=== PATIENT | female | born 1990 | race Caucasian/White ===

== ENCOUNTER 2021-04-03 17:09 | Outpatient (REF) | payer BC, SELFPAY | END 2021-04-03 17:10 | disposition home or self-care (01) | LOC: HO.LNP 17:09 | PROVIDERS: Visit Provider Physician Assistant | DX: Z20.822 Contact with and (suspected) exposure to COVID-19 (principal); J40 Bronchitis, not specified as acute or chronic | CPT/HCPCS: U0003; U0005 ==

== ENCOUNTER 2021-06-03 13:54 | Outpatient (REF) | payer BC, SELFPAY | END 2021-06-03 13:55 | disposition home or self-care (01) | LOC: HO.HMGCLDS 13:54 | PROVIDERS: Visit Provider Internal Medicine | DX: Z20.822 Contact with and (suspected) exposure to COVID-19 (principal) | CPT/HCPCS: C9803; U0003; U0005 ==

== ENCOUNTER 2021-12-25 14:12 | Outpatient (REF) | payer BC, SELFPAY ==
[2021-12-25 15:21] LABS: Hematocrit 32.2 % (37.0-47.0); Hemoglobin 10.6 g/dl (12.0-16.0); Mean Corpuscular HGB Conc 32.9 g/dl (31.0-35.0); Mean Corpuscular Hemoglobin 28.6 pg (27.0-33.0); Mean Platelet Volume 10.6 fL (9.4-12.3); Platelet Count 328 X10*3/uL (160-400); Red Cell Distribution Width 13.3 % (11.0-16.0); White Blood Count 5.4 X10*3/uL (4.8-10.8)
[2021-12-25 15:37] LABS: Anion Gap 11 (12-20); Blood Urea Nitrogen 14 mg/dL (9-16); Carbon Dioxide 24 mmol/L (22-29); Chloride 108 mmol/L (96-108); Estimated Glomerular Filt Rate > 60; Glucose Random 96 mg/dL (60-115); Potassium 4.2 mmol/L (3.3-5.1); Sodium 139 mmol/L (135-145)
[2021-12-25 15:58] LABS: Thyroid Stimulating Hormone 1.25 uIU/mL (0.32-4.0)
== END 2021-12-25 14:13 | disposition home or self-care (01) ==
LOC: HO.HMGCLDS 14:12
PROVIDERS: PCP Pediatrics; Visit Provider Internal Medicine
DX: N93.8 Other specified abnormal uterine and vaginal bleeding (principal)
CPT/HCPCS: 36415; 80048; 84443; 85027

== ENCOUNTER 2023-04-05 12:43 | Emergency (ER) | payer BC, SELFPAY ==
--- NOTE | ~2023-04-05 | XR_ITS ---
EXAMINATION: XR CHEST CLINICAL INFORMATION: Dyspnea on exertion and chest pain COMPARISON: 04/19/2019 TECHNIQUE: 2 views of the chest were obtained. FINDINGS: No significant abnormality is noted involving the heart, lungs, mediastinum, bony thorax or soft tissues. XR/XR chest 2V IMPRESSION: Unremarkable examination.
--- NOTE | 2023-04-05 12:47 | ECG_ITS ---
Test Reason : CP Blood Pressure : / mmHG Vent. Rate : 068 BPM Atrial Rate : 068 BPM P-R Int : 120 ms QRS Dur : 078 ms QT Int : 386 ms P-R-T Axes : 074 061 031 degrees QTc Int : 410 ms Normal sinus rhythm Normal ECG When compared with ECG of 19-APR-2019 13:20, No significant change was found Referred By: Generic ED Physician Electronically Signed By:MORENO JAIN MD
[2023-04-05 13:40] VITALS: BP 132/75; PULSE 80; RESP 16; TEMP 36.7; O2SAT 100; BMI 27.7
--- NOTE | 2023-04-05 13:41 | ED_ITS ---
HPI - Chest Pain General Chief Complaint: Chest Pain Stated Complaint: chest pain Time Seen by Provider: 04/05/23 17:31 Source: patient Mode of arrival: ambulatory History of Present Illness HPI narrative: 33-year-old female who presents with an occurrence of chest pressure that she describes as being in the mid chest and occurred last night while watching TV. It was associated with shortness of breath and then resolved. Patient states that it again occurred today and she became very concerned and decided to have it further evaluated here in the emergency room. She denies any significant past medical history is currently on hydroxyzine for anxiety and is currently on her menstrual cycle. Related Data Home Medications Medication Instructions Recorded Confirmed albuterol sulfate 90 mcg/actuation 0 mcg inhalation 04/03/21 aerosol inhaler amitriptyline 10 mg tablet 0 mg PO 04/03/21 benzonatate 100 mg capsule 100 mg PO TID 04/03/21 epinephrine 0.3 mg/0.3 mL 0.3 mg IM ONCE PRN 04/03/21 injection, auto-injector ferrous sulfate 325 mg (65 mg 325 mg PO TID 04/03/21 iron) tablet fluticasone propionate 50 1 spray intranasal DAILY 04/03/21 mcg/actuation nasal spray,suspension cholecalciferol (vitamin D3) 50 50 mcg PO DAILY 12/24/21 mcg (2,000 unit) capsule ferrous gluconate 324 mg (37.5 mg 324 mg PO BID 12/24/21 iron) tablet folic acid 1 mg tablet 1 mg PO DAILY 12/24/21 magnesium oxide 500 mg PO BID PRN constipation 12/24/21 mecobalamin (vitamin B12) 5,000 mcg PO 12/24/21 mcg disintegrating tablet pseudoephedrine HCl 120 mg 120 mg PO Q12H 12/24/21 tablet,extended release (Sinus 12 Hour) turmeric root extract 500 mg 500 mg PO DAILY 12/24/21 capsule Previous Rx's Medication Instructions Recorded albuterol sulfate 90 mcg/actuation 1 inh inhalation Q4-6H PRN 04/03/21 aerosol inhaler (ProAir HFA) shortness of breath or wheezing #6.7 grams azithromycin 250 mg tablet 250 mg PO DAILY 5 days #6 tabs 04/03/21 (Zithromax Z-Douglas) Allergies Allergy/AdvReac Type Severity Reaction Status Date / Time morphine Allergy Mild itchy Verified 12/24/21 14:55 chest and throat diphenhydramine Allergy Unknown PALP Verified 04/03/21 14:19 [From BENADRYL] ibuprofen [From MOTRIN] Allergy Unknown PALP Verified 04/03/21 14:19 Review of Systems 2 Review of Systems: Pertinent positives and negatives as stated in [facility] Past Medical History Source: nursing notes reviewed Social History Social History Alcohol intake: never Patient Tobacco Use Status: Never used Tobacco Smoked in Last 30 Days: No Use of substances other than those prescribed or required for medical reasons: No Advance Directives: No Advance Directives Information Provided: No Patient : No Physical Exam 2 Vital Signs: Vital Signs: Last Vital Signs Temp 97.9 F 04/05/23 17:38 Pulse 70 04/05/23 17:38 Resp 16 04/05/23 17:38 BP 107/71 04/05/23 17:38 Pulse Ox 100 04/05/23 17:38 O2 Del Method Room Air 04/05/23 17:38 BMI result Body Mass Index 27.7 VITAL SIGNS: Reviewed. GENERAL: Well developed, well nourished, in no acute distress. HEAD: Normocephalic/atraumatic EYES: PERRLA, EOMI EARS: Ext canals without abnormality, TMs non-bulging and non-erythematous NOSE: Nares congestion OROPHARYNX: no oral lesions noted, posterior pharynx clear and non-erythematous without noted tonsillar enlargement/erythema/exudates NECK: Supple, no adenopathy LUNGS: Normal breath sounds. No adventitious sounds or accessory muscle use. SpO2<100> CARDIOVASCULAR: Regular rate and rhythm without noted murmurs ABDOMEN: Soft, non-tender, non-distended with bowel sounds. MUSCULOSKELETAL: No tenderness, deformities, or effusions noted on gross inspection. EXTREMITIES: No cyanosis, clubbing or edema. SKIN: Inspection of the skin reveals no rashes NEUROLOGIC: Alert and oriented x 4. Strength and sensation to light touch were grossly intact x 4. Course Course Course Narrative: RME - 33 yo female presenting to the ER for evaluation of intermittent, 8/10 mid chest pain that started last night along w/ COYLE, fatigue, headaches and lightheadedness. Described as pins and needles. Plan: CXR, EKG, labs, viral studies Medical Decision Making Medical Decision Making MDM Narrative: 33-year-old female with history and clinical presentation, DDX: Anxiety, musculoskeletal pain, common cold, no clinical suspicion for ACS or pneumonia. I reviewed all investigations and hematologic indices are negative for leukocytosis or left shift, there is a chronically stable normocytic anemia without evidence of tachypnea/tachycardia or hypoxia and no palpitations. There is no thrombocytopenia. Chemistry indices do not demonstrates MARQUISE and there is no electrolyte or liver enzyme abnormalities, high sensitivity troponin is undetectable and BT AcG is negative. I did review prior thyroid studies which demonstrated TSH within normal limits. Urinalysis negative for UTI and presence of blood consistent with patient's current menstrual cycle. Viral testing is negative for COVID-19/influenza. Chest x-ray negative for infiltrate 10 otherwise my interpretation is in agreement with radiology's impression. There are no acute findings on EKG when compared to prior. My interpretation is that patient may have experienced a combination of anxiety associated with chest congestion secondary to common cold/viral symptoms. All results and findings were discussed with her at bedside and she is encouraged to follow-up with her primary care doctor. Differential Diagnosis Differential Diagnoses: The differential diagnosis associated with the presentation includes Please see the discussion above Admission/Observation Consideration of admission/observation: Escalation of care including admission/observation considered Please see the discussion above Lab Data MDM Lab Attestation statement: I reviewed the patient's lab results. Please see the discussion above 04/05/23 13:57 04/05/23 13:57 Labs: Lab Results 04/05/23 04/05/23 Range/Units 13:54 13:57 WBC 6.4 (4.8-10.8) X10*3/uL RBC 4.04 L (4.20-5.50) X10*6/uL Hgb 11.4 L (12.0-16.0) g/dl Hct 35.2 L (37.0-47.0) % MCV 87.1 (80.0-98.0) fL MCH 28.2 (27.0-33.0) pg MCHC 32.4 (31.0-35.0) g/dl RDW 13.8 (11.0-16.0) % Plt Count 343 (160-400) X10*3/uL MPV 10.1 (9.4-12.3) fL Immature Gran % (Auto) 0.2 (0.0-0.4) % Neut % (Auto) 51.3 (45-73) % Lymph % (Auto) 34.1 (20-40) % [place] % (Auto) 7.6 (2-11) % Eos % (Auto) 6.2 H (0-4) % Baso % (Auto) 0.6 (0-2) % Lymph # (Auto) 2.2 (1.2-4.9) X10*3/uL [place] # (Auto) 0.5 (0.1-1.2) X10*3/uL Eos # (Auto) 0.4 (0.0-0.4) X10*3/uL Baso # (Auto) 0.0 (0.0-0.2) X10*3/uL Abs Immat Gran (auto) 0.01 (0.00-0.03) X10*3/uL Absolute Neuts (auto) 3.3 (2.0-8.3) x10*3/uL Absolute Nucleated RBC 0.000 (0.0-0.012) X10*3/uL Nucleated RBC % (auto) 0.0 (0.0-0.2) /100WBC Sodium 140 (135-145) mmol/L Potassium 4.0 (3.3-5.1) mmol/L Chloride 107 (96-108) mmol/L Carbon Dioxide 25 (22-29) mmol/L Anion Gap 12 (12-20) BUN 11 (9-16) mg/dL Creatinine 0.72 (0.5-1.4) mg/dL Estim Creat Clear Calc 100.9 Estimated GFR > 60 Random Glucose 93 (60-115) mg/dL Calcium 9.3 (8.4-10.2) mg/dL Magnesium 2.1 (1.6-2.6) mg/dL Total Bilirubin 0.2 (0.0-1.0) mg/dL Direct Bilirubin < 0.2 (0.0-0.5) mg/dL AST 20 (5-31) U/L ALT 16 (0-31) U/L Alkaline Phosphatase 68 (39-117) U/L Troponin I High Sens < 2.7 (<3.5-17.0) ng/L Total Protein 7.7 (6.5-8.0) g/dL Albumin 4.2 (3.5-5.0) g/dL Beta HCG, Quant < 2 mIU/mL Urine Color Yellow Urine Appearance Clear Urine pH 5.5 (5.0-9.0) Ur Specific [place] 1.020 (1.005-1.025) Urine Protein Negative (Neg-Trace) mg/dL Urine Glucose (UA) Negative (Negative) mg/dL Urine Ketones Negative (Negative) mg/dL Urine Blood Large (3+) H (Negative) Urine Nitrite Negative (Negative) Ur Leukocyte Esterase Negative (Negative) Urine RBC >20 H (0-2) /HPF Urine WBC 0-5 (0-5) /HPF Ur Squamous Epith Cells 0-2 (0-2) /HPF Urine Bacteria None Seen (None Seen) Hyaline Casts 0-2 (0-2) /LPF COVID-19 (SANDER) Negative (Negative) COVID-19 Clin Com See Note Influenza Type A (IVAN) Negative (Negative) Influenza Type B (IVAN) Negative (Negative) Influenza A & B Note See Note Independent Interpretation I performed an independent interpretation of an: EKG Interpretation: Normal sinus rhythm, HR -68, no STEMI, MI/QRS/QTC is within normal limits. Radiology Impression Discussion of test interpretation with radiology: I have reviewed the radiologist's reading. Radiologist Impression: Please see the discussion above External Record Review External record reviewed: Outpatient record, Prior outpatient labs and Prior outpatient radiology Chronic Conditions Patient?s care impacted by: Other Anxiety Discharge Plan Discharge Clinical Impression: Chest pain, Chest congestion Patient Disposition: Home, Self-Care Instructions: Chest Pain (ED) Additional Instructions: Resume all home medications as prescribed. Please follow-up with primary care doctor in the next 1-2 days. Your workup today was negative for evidence to suggest cardiac source, there is no pneumonia, and lab work is demonstrating that there is no evidence of infection, your kidneys appear to be working well. Return to the ER if anything changes. Prescriptions: No Action amitriptyline 10 mg tablet 0 mg PO ferrous sulfate 325 mg (65 mg iron) tablet 325 mg PO TID benzonatate 100 mg capsule 100 mg PO TID albuterol sulfate 90 mcg/actuation HFA aerosol inhaler 0 mcg inhalation fluticasone propionate 50 mcg/actuation spray,suspension 1 spray intranasal DAILY epinephrine 0.3 mg/0.3 mL auto-injector 0.3 mg IM ONCE PRN azithromycin [Zithromax Z-Douglas] 250 mg tablet 250 mg PO DAILY 5 Days Qty: 6 0RF Rx Instructions: 2 pills day 1, then one pill per day x4 days albuterol sulfate [ProAir HFA] 90 mcg/actuation HFA aerosol inhaler 1 inh inhalation Q4-6H PRN (Reason: shortness of breath or wheezing) Qty: 6.7 0RF ferrous gluconate 324 mg (37.5 mg iron) tablet 324 mg PO BID magnesium oxide 250 mg magnesium tablet 500 mg PO BID PRN (Reason: constipation) cholecalciferol (vitamin D3) 50 mcg (2,000 unit) capsule 50 mcg PO DAILY mecobalamin (vitamin B12) 5,000 mcg tablet,disintegrating PO folic acid 1 mg tablet 1 mg PO DAILY turmeric root extract 500 mg capsule 500 mg PO DAILY pseudoephedrine HCl [Sinus 12 Hour] 120 mg tablet extended release 120 mg PO Q12H Referrals: Kameron Wright MD [Primary Care Provider] - Interventions: ED Discharge Assessment Last Done: 04/05/23 18:25
[2023-04-05 14:03] LABS: MANUAL DIFF FLAG NO
[2023-04-05 14:05] LABS: Basophils Percent Auto 0.6 % (0-2); Eosinophils Absolute Auto 0.4 X10*3/uL (0.0-0.4); Eosinophils Percent Auto 6.2 % (0-4); Hematocrit 35.2 % (37.0-47.0); Hemoglobin 11.4 g/dl (12.0-16.0); Imm Gran Abs Auto 0.01 X10*3/uL (0.00-0.03); Imm Gran Pct Auto 0.2 % (0.0-0.4); Lymphocytes Absolute Auto 2.2 X10*3/uL (1.2-4.9); Lymphocytes Percent Auto 34.1 % (20-40); Mean Corpuscular HGB Conc 32.4 g/dl (31.0-35.0); Mean Corpuscular Hemoglobin 28.2 pg (27.0-33.0); Mean Corpuscular Volume 87.1 fL (80.0-98.0); Mean Platelet Volume 10.1 fL (9.4-12.3); Monocytes Absolute Auto 0.5 X10*3/uL (0.1-1.2); Monocytes Percent Auto 7.6 % (2-11); Neutrophils Absolute Auto 3.3 x10*3/uL (2.0-8.3); Neutrophils Percent Auto 51.3 % (45-73); Platelet Count 343 X10*3/uL (160-400); Red Blood Count 4.04 X10*6/uL (4.20-5.50); Red Cell Distribution Width 13.8 % (11.0-16.0); White Blood Count 6.4 X10*3/uL (4.8-10.8)
[2023-04-05 14:07] LABS: Appearance Urine Clear; Color Urine Yellow; Glucose Urine UA Negative (Negative); Leukocyte Esterase Urine Negative (Negative); Nitrite Urine Negative (Negative); PH 5.5 (5.0-9.0); UMIC TRIGGER UACC YES; Urine Blood Large (3+) (Negative); Urine Ketones Negative (Negative); Urine Protein Negative (Neg-Trace)
[2023-04-05 14:09] LABS: Bacteria Urine None Seen (None Seen); Hyaline Casts Urine 0-2 /LPF (0-2); RBC Urine >20 /HPF (0-2); Squamous Epithelial Cell Urine 0-2 /HPF (0-2); WBC Urine 0-5 /HPF (0-5)
[2023-04-05 14:25] LABS: COVID-19 Test Negative (Negative); IDNOW Serial# 08D9AD1C
[2023-04-05 14:26] LABS: Alanine Aminotransferase 16 U/L (0-31); Albumin Level 4.2 g/dL (3.5-5.0); Alkaline Phosphatase 68 U/L (39-117); Anion Gap 12 (12-20); Aspartate Amino Transferase 20 U/L (5-31); Bilirubin Direct < 0.2 mg/dL (0.0-0.5); Bilirubin Total 0.2 mg/dL (0.0-1.0); Blood Urea Nitrogen 11 mg/dL (9-16); Calcium 9.3 mg/dL (8.4-10.2); Carbon Dioxide 25 mmol/L (22-29); Chloride 107 mmol/L (96-108); Creatinine Clr Calc Pharmacy 100.9; Estimated Glomerular Filt Rate > 60; Glucose Random 93 mg/dL (60-115); Magnesium 2.1 mg/dL (1.6-2.6); Sodium 140 mmol/L (135-145); Total Protein 7.7 g/dL (6.5-8.0)
[2023-04-05 14:26] LABS: IDNOW Serial# BCCEAD1C; Influenza A Negative (Negative); Influenza B2 Negative (Negative)
[2023-04-05 14:27] LABS: HCG Quantitative < 2 mIU/mL; Troponin-I High Sensitivity < 2.7 ng/L (<3.5-17.0)
[2023-04-05 17:38] VITALS: BP 107/71; PULSE 70; RESP 16; TEMP 36.6; O2SAT 100
--- NOTE | 2023-04-05 17:44 | PC.NURSE ---
a&ox3, vss and up to date. 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 pt c/o sternal chest pain that radiates to LUE. pain started 2 days ago. pt denies n/headache/lightheaded/chills. pt verbalizes no new life stressors at this time. pot verbalizes sob upon exertion. no swelling noted in bilateral LE. lung sounds clear throughout. no wob/wob noted at this time. pt able to speak in full/clear sentences w/o difficulty. respirations even and unlabored. call rojas placed within reach.
== END 2023-04-05 18:26 | disposition home or self-care (01) ==
PROVIDERS: Physician Assistant; Emergency Provider Student in an Organized Health Care Education/Training Program; PCP Pediatrics
DX: R07.9 Chest pain, unspecified (principal); R09.89 Other specified symptoms and signs involving the circulatory and respiratory systems; R06.02 Shortness of breath; Z11.52 Encounter for screening for COVID-19; Z79.899 Other long term (current) drug therapy
CPT/HCPCS: 36415; 71046; 80048; 80076; 81001; 83735; 84484; 84702; 85025; 87502; 87635; 93005; 99283; 99285

== ENCOUNTER 2023-06-15 10:09 | Outpatient (AMB) | payer BC, SELFPAY ==
[2023-06-15 10:14] VITALS: BP 106/62; PULSE 83; TEMP 36.6; O2SAT 97
--- NOTE | 2023-06-15 10:14 | MHC.OFFWIV ---
Intake Vital Signs 06/15/23 10:14 Height 5 ft 2 in BP 106/62 Blood Pressure Location Rt brachial Position Sitting Pulse 83 Pulse Source Pulse Oximeter Temp 97.9 F Temp Source Oral Pulse Oximetry (%) 97 Oxygen Delivery Method Room Air Intake Visit Reasons: EST/cough since monday(lobby masked) Intake Note: pt is here for c.o cough since monday and vomiting and body chills Patient Tobacco Use Status: Never used Tobacco Allergies morphine Allergy (Mild, Verified 06/15/23 10:20) itchy chest and throat diphenhydramine [From BENADRYL] Allergy (Unknown, Verified 06/15/23 10:20) PALP ibuprofen [From MOTRIN] Allergy (Unknown, Verified 06/15/23 10:20) PALP Medication List - Last Reconciled 06/15/23 by Diane Wells NP acetaminophen 500 mg PO Q6H PRN albuterol sulfate 90 mcg/actuation (ProAir HFA) 1 inh inhalation Q4-6H PRN albuterol sulfate 90 mcg/actuation 0 mcg inhalation azithromycin 500 mg PO DAILY 5 days epinephrine 0.3 mg IM ONCE PRN fluticasone propionate 50 mcg/actuation 1 spray intranasal DAILY folic acid 1 mg PO DAILY magnesium oxide 500 mg PO BID PRN mecobalamin (vitamin B12) mcg PO pseudoephedrine HCl ER (Sinus 12 Hour) 120 mg PO Q12H turmeric root extract 500 mg PO DAILY Do you need a note to return to daycare/school/sports/work: Yes HPI HPI Comments History of Present Illness Details 33 y/o female with c/o cough, SOB, sorethroat, fevers at home, chills, vomiting, nausea runny nose and headache. Reports that symptoms started Monday. COVID Negative at home. She has been taking Acetaminophen with some good relief. Hx of Asthma and currently has been using Albuterol rescue in [facility] frequently. She is not taking any daily Asthma medications. PFSH Social History Alcohol intake: never Patient Tobacco Use Status: Never used Tobacco Physical Exam Vital Signs: Last Vital Signs Temp 97.9 F 06/15/23 10:14 Pulse 83 06/15/23 10:14 BP 106/62 06/15/23 10:14 Pulse Ox 97 06/15/23 10:14 Oxygen Delivery Method Room Air 06/15/23 10:14 Const General: cooperative and no acute distress HEENT Head: Yes normocephalic Ears: external ears normal and TM's normal bilaterally General nose exam: Abnormal mucous membranes and turbinates present boggy and erythematous and Nasal discharge present Face and sinus: Yes sinus tenderness Mouth: Abnormal oral and palatal mucosa present erythematous Throat: Yes uvula midline and Yes postnasal drainage Resp Effort & Inspection: normal respiratory effort and Actively coughing Auscultation: clear to auscultation bilaterally, no crackles, no rales, no rhonchi and no wheezes Cardio Rate: regular rate Rhythm: regular rhythm Assessment & Plan Assessment & Plan (1) URI, acute: Code(s): J06.9 - Acute upper respiratory infection, unspecified Plan: Avoid exposure to these triggers; smoke, mold, tobacco, pollen, etc Stay up to date on all your vaccines, such as flu and pneumonia vaccines. Take all your medications as prescribed, complete Abx course. (2) Asthma exacerbation: Code(s): J45.901 - Unspecified asthma with (acute) exacerbation Qualifiers: Asthma severity: moderate Asthma persistence: persistent Qualified Code(s): J45.41 - Moderate persistent asthma with (acute) exacerbation Plan: Avoid exposure to these triggers; smoke, mold, tobacco, pollen, etc Stay up to date on all your vaccines, such as flu and pneumonia vaccines. Take all your medications as prescribed, complete Abx course. Plan Avoid exposure to these triggers; smoke, mold, tobacco, pollen, etc Stay up to date on all your vaccines, such as flu and pneumonia vaccines. Take all your medications as prescribed, complete Abx course. Medications: New acetaminophen TAKE 2 TABS EVERY 6-8 HOURS FOR FEVER AND PAIN 500 mg PO Q6H PRN 30 caps 0RF fever J06.9 - Acute upper respiratory infection, unspecified, J45.901 - Unspecified asthma with (acute) exacerbation azithromycin 500 mg PO DAILY 5 days 5 tabs 0RF Coding Level of Care Code Est Pt Level 3 (60811) Diagnoses URI, acute J06.9 Moderate persistent asthma with exacerbation J45.41 Asthma severity: moderate Asthma persistence: persistent Time Spent (min) 15
== END 2023-06-15 10:41 | disposition home or self-care (01) ==
PROVIDERS: PCP Pediatrics; Visit Provider Nurse Practitioner Family
DX: J06.9 Acute upper respiratory infection, unspecified (principal); J45.41 Moderate persistent asthma with (acute) exacerbation
CPT/HCPCS: 99214

== ENCOUNTER 2023-06-22 10:47 | Emergency (ER) | payer BC, SELFPAY ==
--- NOTE | ~2023-06-22 | CT_ITS ---
EXAMINATION: CT HEAD WITHOUT CONTRAST CT SINUSES WITHOUT CONTRAST CLINICAL INFORMATION: Assess for bleed. Left frontal and left maxillary pain. Possible sinusitis. COMPARISON: There are no prior studies available for comparison. TECHNIQUE: Multidetector CT imaging of the head and paranasal sinuses bones was performed without the use of intravenous contrast. Coronal and sagittal reformatted images were generated at the technologist workstation. DLP: 696 mGy-cm. FINDINGS: CT head: There is no evidence of acute intracranial hemorrhage or territorial infarction. No abnormal mass-effect or midline shift is seen. [place] to white matter differentiation is well preserved. No extra-axial fluid collections are identified. The ventricles are normal in size. There is no abnormal attenuation within the brain parenchyma. The osseous structures and soft tissues are normal. CT sinuses: FRONTAL SINUSES AND DRAINAGE PATHWAYS: The frontal sinuses are well developed bilaterally. They are well-aerated with patent frontal sinus drainage pathways. There is a small area of low attenuation in the anterior wall of the left frontal sinus which is nonspecific (image 92/136, series [address] sinus series), and may be consistent with a small fibro-osseous lesion. However an infiltrative or more aggressive process cannot be excluded. MAXILLARY SINUSES AND DRAINAGE PATHWAYS: The maxillary sinuses are well-developed bilaterally. There is minimal mucoperiosteal thickening in the inferior right maxillary sinus. The ostiomeatal complexes are patent bilaterally. ETHMOID SINUSES: The ethmoid sinuses are well-developed and appear clear bilaterally. SPHENOID SINUSES AND DRAINAGE PATHWAYS: The sphenoid sinuses are well-aerated bilaterally. They are clear with patent sphenoethmoidal recesses. NASAL CAVITY AND NASAL SEPTUM: The nasal septum is minimally deviated to the left. There are no prominent nasal septal spurs. There are no nasal masses or large polyps. ADDITIONAL RELEVANT FINDINGS: The lamina papyracea are intact. The carotid canals are normally covered by bone. The ethmoid roofs are symmetric. There is no periapical disease, but there is caries in the bilateral maxillary 2nd molar teeth and left mandibular 2nd molar tooth. The right mandibular 3rd molar tooth is not fully erupted. The TMJs and orbits are normal. The mastoid air cells are well-aerated. There is extensive pneumatization of the bilateral petrous apices. CT/CT head/brain wo IV con IMPRESSION: 1. There are no acute bleeds or territorial infarcts. No masses are demonstrated. 2. There is no significant active sinus disease. 3. The ostiomeatal complexes are patent bilaterally. 4. There are no nasal septal spurs. 5. There is a small area of low attenuation in the anterior wall of the left frontal sinus which is nonspecific, and may be consistent with a small fibro-osseous lesion. However, an infiltrative lesion cannot be excluded. Recommend follow-up CT scan in 3 months to assess any interval change.
[2023-06-22 10:50] VITALS: BP 110/73; PULSE 91; RESP 19; TEMP 36.6; O2SAT 98; BMI 27.4
--- NOTE | 2023-06-22 13:29 | ED.GENADULT ---
HPI - General Adult General Chief complaint: General Medical Stated complaint: Headache, chills, numbness left arm Time Seen by Provider: 06/22/23 13:12 Source: patient and family (Significant other) Mode of arrival: ambulatory Limitations: no limitations History of Present Illness HPI narrative: A 33-year-old female came in for evaluation of left-sided hip pain and left facial pain for 2 weeks. Patient was previously evaluated at a walk-in clinic diagnosed with sinusitis patient was sent home on 5 days course of azithromycin with no improvement. Headache started about 2 weeks ago with fever generalized body ache and pressure around her left eye and in her left forehead area, and sore throat most of the symptoms improved patient still feel pressure on the left side of her face and left side of her head radiating down to the left side of her neck, no head stiffness, feeling nauseous but no vomiting, light bothers her eyes. No family history of intracranial bleed, or brain aneurysm, or brain tumor, or young . Related Data Home Medications Medication Instructions Recorded Confirmed albuterol sulfate 90 mcg/actuation 0 mcg inhalation 04/03/21 06/15/23 aerosol inhaler epinephrine 0.3 mg/0.3 mL 0.3 mg IM ONCE PRN 04/03/21 06/15/23 injection, auto-injector fluticasone propionate 50 1 spray intranasal DAILY 04/03/21 06/15/23 mcg/actuation nasal spray,suspension folic acid 1 mg tablet 1 mg PO DAILY 12/24/21 06/15/23 magnesium oxide 500 mg PO BID PRN constipation 12/24/21 06/15/23 mecobalamin (vitamin B12) 5,000 mcg PO 12/24/21 06/15/23 mcg disintegrating tablet pseudoephedrine HCl 120 mg 120 mg PO Q12H 12/24/21 06/15/23 tablet,extended release (Sinus 12 Hour) turmeric root extract 500 mg 500 mg PO DAILY 12/24/21 06/15/23 capsule Previous Rx's Medication Instructions Recorded albuterol sulfate 90 mcg/actuation 1 inh inhalation Q4-6H PRN 04/03/21 aerosol inhaler (ProAir HFA) shortness of breath or wheezing #6.7 grams acetaminophen 500 mg capsule 500 mg PO Q6H PRN fever #30 caps 06/15/23 azithromycin 500 mg tablet 500 mg PO DAILY 5 days #5 tabs 06/15/23 amoxicillin 500 mg-potassium 1 tab PO BID #14 tabs 06/22/23 clavulanate 125 mg tablet (Augmentin) oxycodone 5 mg tablet 5 mg PO BID PRN pain #10 tabs 06/22/23 oxycodone 5 mg tablet 5 mg PO BID PRN pain #7 tabs 06/22/23 Allergies Allergy/AdvReac Type Severity Reaction Status Date / Time morphine Allergy Mild itchy Verified 06/22/23 10:50 chest and throat diphenhydramine Allergy Unknown PALP Verified 06/22/23 10:50 [From BENADRYL] ibuprofen [From MOTRIN] Allergy Unknown PALP Verified 06/22/23 10:50 Review of Systems Review of Systems: All other systems are reviewed and are negative Constitutional: Reports as per HPI and Reports no additional constitutional complaints Eyes: Reports as per HPI and Reports no additional eye complaints Reports system reviewed and no additional complaints, except as documented Cardiovascular: Reports as per HPI and Reports no additional cardiovascular complaints Respiratory: Reports as per HPI and Reports no additional respiratory complaints Gastrointestinal: Reports as per HPI and Reports no additional gastrointestinal complaints Genitourinary: Reports no additional female genitourinary complaints Musculoskeletal: Reports no additional musculoskeletal complaints Skin/Breast: Reports system reviewed and no additional complaints, except as docu Psychiatric: Reports no additional psychiatric complaints Endocrine: Reports no additional endocrine complaints Hematologic/Lymphatic: Reports no additional hematologic/lymphatic complaints Allergic/Immunologic: Reports no additional allergic/immunologic complaints Reports system reviewed and no additional complaints, except as documented and Reports Abnormal speech present [facility] Social History Social History Alcohol intake: never Patient Tobacco Use Status: Never used Tobacco Smoked in Last 30 Days: No Use of substances other than those prescribed or required for medical reasons: No Advance Directives: No Patient : No Physical Exam ED Vital Signs: Vital Signs - 24 hr 06/22/23 10:50 06/22/23 13:55 06/22/23 15:59 Temperature 98 F 98.6 F Pulse Rate 91 92 66 Respiratory Rate 19 16 16 Blood Pressure 110/73 110/70 101/61 Pulse Oximetry 98 100 100 Oxygen Delivery Method Room Air Room Air Room Air 06/22/23 17:42 Temperature 98.1 F Pulse Rate 66 Respiratory Rate 16 Blood Pressure 102/55 L Pulse Oximetry 98 Oxygen Delivery Method Room Air BMI result Body Mass Index 27.4 Vital signs have been reviewed and appear to be correct. Blood pressure elevated. Heart rate normal. Respiratory rate normal. Temperature normal. Oxygen saturation normal. Appearance: Alert. Oriented X3. No acute distress. Head: Normal external exam. Normocephalic. Atraumatic. No [place] signs noted. No raccoon eyes noted Eyes: PERRLA. EOMI. Conjunctiva and sclera normal. Eyelids normal. ENT: Left frontal/left maxillary sinus tenderness with percussion, no purulent nasal discharge. Pharynx normal. Uvula midline. Moist mucous membranes. No trismus noted. No drooling noted. No muffled voice noted. Neck: Normal inspection. Neck supple. FROM. No adenopathy. Thyroid Normal. No meningeal signs. No neck mass noted. CVS: Normal heart rate and rhythm. Heart sound normal. No murmurs noted. Pulses normal throughout. Respiratory: No respiratory distress. Painless inspiration. Breath sounds normal. No wheezes/rales/rhonchi noted. Chest nontender. No accessory muscle usage noted or decreased air movement noted. Abdomen: Soft and nontender. Bowel sounds normal in all 4 quadrants. No distention noted. No organomegaly noted. No visible injury noted. Back: No CVA tenderness. Full range of motion noted. Skin: Skin warm and dry. Normal skin color. Normal skin turgor. No rashes/lesions/lacerations noted. Extremities: No lower extremity edema. Extremities exhibit normal range of motion. Extremities nontender. Neuro: Oriented X 3. Cranial nerve exam: II-XII are grossly intact No motor deficit. No sensory deficit. Reflexes normal. Course Reevaluation(s) Reevaluation #1: Headache has improved, no fever, no chills, unremarkable head/sinus CT, normal WBCs normal sed rate and C-reactive protein. 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 Will discharge the patient on Augmentin/oxycodone/follow-up with PCP and get ENT referral. Time: 18:24 Medications Administered Discontinued Medications Generic Name Dose Route Start Last Admin Trade Name Freq PRN Reason Stop Dose Admin Acetaminophen 650 mg 06/22/23 16:08 06/22/23 16:52 Acetaminophen 325 Mg Tablet PO 06/22/23 16:09 650 mg ONCE ONE Administration Hydromorphone HCl 1 mg 06/22/23 13:28 06/22/23 13:54 Hydromorphone Hcl 1 Mg/Ml Syringe IVPUSH 06/22/23 13:29 0.5 mg ONCE ONE Administration Protocol Sodium Chloride 1,000 mls @ 999 mls/hr 06/22/23 13:28 06/22/23 17:35 Ns IV 06/22/23 14:28 Infused .Q1H1M ONE Infusion Sodium Chloride 1,000 mls @ 999 mls/hr 06/22/23 16:56 06/22/23 17:05 Ns IV 06/22/23 17:56 999 mls/hr .Q1H1M ONE Administration Ondansetron HCl 4 mg 06/22/23 13:29 06/22/23 13:54 Ondansetron Hcl 4 Mg/2 Ml Vial IVPUSH 06/22/23 13:30 4 mg ONCE ONE Administration Ondansetron HCl 4 mg 06/22/23 16:56 06/22/23 17:04 Ondansetron Hcl 4 Mg/2 Ml Vial IVPUSH 06/22/23 16:57 4 mg ONCE ONE Administration Ondansetron HCl 4 mg 06/22/23 16:58 06/22/23 17:07 Ondansetron Hcl 4 Mg/2 Ml Vial IVPUSH 06/22/23 16:59 Not Given ONCE ONE Oxycodone HCl 5 mg 06/22/23 16:41 06/22/23 18:27 Oxycodone Hcl Immed Release 5 Mg Tablet PO 06/22/23 16:42 Not Given ONCE ONE Medical Decision Making Differential Diagnosis Differential Diagnoses: The differential diagnosis associated with the presentation includes (Acute sinusitis, intracranial bleed, temporal arteritis.) Admission/Observation Consideration of admission/observation: Escalation of care including admission/observation considered Lab Data MDM Lab Attestation statement: I reviewed the patient's lab results. 06/22/23 16:48 Labs: Lab Results 06/22/23 06/22/23 Range/Units 13:42 16:48 WBC 5.2 (4.8-10.8) X10*3/uL RBC 3.84 L (4.20-5.50) X10*6/uL Hgb 10.7 L (12.0-16.0) g/dl Hct 32.8 L (37.0-47.0) % MCV 85.4 (80.0-98.0) fL MCH 27.9 (27.0-33.0) pg MCHC 32.6 (31.0-35.0) g/dl RDW 13.4 (11.0-16.0) % Plt Count 369 (160-400) X10*3/uL MPV 10.0 (9.4-12.3) fL Immature Gran % (Auto) 0.2 (0.0-0.4) % Neut % (Auto) 51.2 (45-73) % Lymph % (Auto) 38.6 (20-40) % [place] % (Auto) 7.3 (2-11) % Eos % (Auto) 2.3 (0-4) % Baso % (Auto) 0.4 (0-2) % Lymph # (Auto) 2.0 (1.2-4.9) X10*3/uL [place] # (Auto) 0.4 (0.1-1.2) X10*3/uL Eos # (Auto) 0.1 (0.0-0.4) X10*3/uL Baso # (Auto) 0.0 (0.0-0.2) X10*3/uL Abs Immat Gran (auto) 0.01 (0.00-0.03) X10*3/uL Absolute Neuts (auto) 2.7 (2.0-8.3) x10*3/uL Absolute Nucleated RBC 0.000 (0.0-0.012) X10*3/uL Nucleated RBC % (auto) 0.0 (0.0-0.2) /100WBC ESR 9 (0-20) MM/HR C-Reactive Protein 0.11 (< or = 0.50) mg/dL Influenza Type A (PCR) NEGATIVE (Negative) Influenza Type B (PCR) NEGATIVE (Negative) RSV RNA Qual (PCR) NEGATIVE (Negative) SARS-CoV-2 RNA (RT-PCR) NEGATIVE (Negative) S. pyogenes GrpA IVAN Negative (Negative) Independent Interpretation I performed an independent interpretation of an: CT Scan (Head/sinus:1. There are no acute bleeds or territorial infarcts. No masses are demonstrated. 2. There is no significant active sinus disease. 3. The ostiomeatal complexes are patent bilaterally. 4. There are no nasal septal spurs. 5. There is a small area of low attenuation in the anterior w) Radiology Impression Discussion of test interpretation with radiology: I have reviewed the radiologist's reading. Discharge Plan Discharge Clinical Impression: Left maxillary sinusitis Patient Disposition: Home, Self-Care Instructions: Sinusitis (ED) Additional Instructions: Follow-up with your PCP. Prescriptions: New amoxicillin-pot clavulanate [Augmentin] 500-125 mg tablet 1 tab PO BID Qty: 14 0RF oxycodone 5 mg tablet 5 mg PO BID PRN (Reason: pain) Qty: 10 0RF Rx Instructions: Partial Fill upon patient request. oxycodone 5 mg tablet 5 mg PO BID PRN (Reason: pain) Qty: 7 0RF Rx Instructions: Partial Fill upon patient request. No Action acetaminophen 500 mg capsule 500 mg PO Q6H PRN (Reason: fever) Qty: 30 0RF Rx Instructions: TAKE 2 TABS EVERY 6-8 HOURS FOR FEVER AND PAIN azithromycin 500 mg tablet 500 mg PO DAILY 5 Days Qty: 5 0RF albuterol sulfate 90 mcg/actuation HFA aerosol inhaler 0 mcg inhalation fluticasone propionate 50 mcg/actuation spray,suspension 1 spray intranasal DAILY epinephrine 0.3 mg/0.3 mL auto-injector 0.3 mg IM ONCE PRN albuterol sulfate [ProAir HFA] 90 mcg/actuation HFA aerosol inhaler 1 inh inhalation Q4-6H PRN (Reason: shortness of breath or wheezing) Qty: 6.7 0RF magnesium oxide 250 mg magnesium tablet 500 mg PO BID PRN (Reason: constipation) mecobalamin (vitamin B12) 5,000 mcg tablet,disintegrating PO folic acid 1 mg tablet 1 mg PO DAILY turmeric root extract 500 mg capsule 500 mg PO DAILY pseudoephedrine HCl [Sinus 12 Hour] 120 mg tablet extended release 120 mg PO Q12H
[2023-06-22] MEDS: 0.9 % Sodium Chloride 1,000 ML 999 ML IV ×2 (13:54→17:05)
[2023-06-22] MEDS: ondansetron HCL 4 MG/2 ML VIAL IVPUSH ×2 (13:54→17:04)
[2023-06-22] MEDS: HYDROmorphone HCl 1 MG/ML SYRINGE IVPUSH (13:54)
[2023-06-22 13:55] VITALS: BP 110/70; PULSE 92; RESP 16; O2SAT 100
[2023-06-22 14:04] LABS: IDNOW Serial# 6674DD1D; Strep A Nucleic Acid Negative (Negative)
[2023-06-22 14:33] LABS: Influenza A PCR NEGATIVE (Negative); Influenza B PCR NEGATIVE (Negative); Resp Syncy Virus RNA Qual PCR NEGATIVE (Negative); SARS COV2 PCR INHOUSE NEGATIVE (Negative)
[2023-06-22 15:59] VITALS: BP 101/61; PULSE 66; RESP 16; TEMP 37; O2SAT 100
[2023-06-22] MEDS: Acetaminophen 325 MG TABLET 650 MG PO (16:52)
[2023-06-22 16:53] LABS: MANUAL DIFF FLAG NO
[2023-06-22 16:54] LABS: Basophils Percent Auto 0.4 % (0-2); Eosinophils Absolute Auto 0.1 X10*3/uL (0.0-0.4); Eosinophils Percent Auto 2.3 % (0-4); Hematocrit 32.8 % (37.0-47.0); Hemoglobin 10.7 g/dl (12.0-16.0); Imm Gran Abs Auto 0.01 X10*3/uL (0.00-0.03); Imm Gran Pct Auto 0.2 % (0.0-0.4); Lymphocytes Percent Auto 38.6 % (20-40); Mean Corpuscular HGB Conc 32.6 g/dl (31.0-35.0); Mean Corpuscular Hemoglobin 27.9 pg (27.0-33.0); Mean Corpuscular Volume 85.4 fL (80.0-98.0); Monocytes Absolute Auto 0.4 X10*3/uL (0.1-1.2); Monocytes Percent Auto 7.3 % (2-11); Neutrophils Absolute Auto 2.7 x10*3/uL (2.0-8.3); Neutrophils Percent Auto 51.2 % (45-73); Platelet Count 369 X10*3/uL (160-400); Red Blood Count 3.84 X10*6/uL (4.20-5.50); Red Cell Distribution Width 13.4 % (11.0-16.0); White Blood Count 5.2 X10*3/uL (4.8-10.8)
[2023-06-22 17:11] LABS: C Reactive Protein 0.11 mg/dL (< or = 0.50)
[2023-06-22 17:42] VITALS: BP 102/55; PULSE 66; RESP 16; TEMP 36.7; O2SAT 98
[2023-06-22 18:00] LABS: Erythrocyte Sedimentation Rate 9 MM/HR (0-20)
== END 2023-06-22 18:58 | disposition home or self-care (01) ==
PROVIDERS: Emergency Provider Emergency Medicine
DX: J32.0 Chronic maxillary sinusitis (principal); R51.9 Headache, unspecified; M25.552 Pain in left hip; M79.10 Myalgia, unspecified site; Z79.899 Other long term (current) drug therapy; Z20.822 Contact with and (suspected) exposure to COVID-19; Z20.828 Contact with and (suspected) exposure to other viral communicable diseases
CPT/HCPCS: 0241U; 36415; 70450; 70486; 85025; 85652; 86140; 87651; 96361; 96374; 96375; 96376; 99284; J1170; J2405

== ENCOUNTER 2024-04-03 11:26 | Emergency (ER) | payer BC, SELFPAY ==
--- NOTE | ~2024-04-03 | XR_ITS ---
EXAMINATION: XR CHEST CLINICAL INFORMATION: Pneumonia evaluation. COMPARISON: April 2023. TECHNIQUE: Frontal view of the chest was obtained. FINDINGS: No airspace consolidation or pneumothorax seen. Hilar regions and pulmonary vascularity appear unremarkable. The pleural surfaces are clear. XR/XR chest 1V IMPRESSION: No evidence for acute process. Electronically signed by: Pascual Meehan MD 04/03/2024 01:39 PM EDT
--- NOTE | 2024-04-03 11:30 | ECG_ITS ---
Test Reason : chest pain Blood Pressure : / mmHG Vent. Rate : 084 BPM Atrial Rate : 084 BPM P-R Int : 120 ms QRS Dur : 078 ms QT Int : 362 ms P-R-T Axes : 067 066 011 degrees QTc Int : 427 ms Sinus rhythm with marked sinus arrhythmia Otherwise normal ECG When compared with ECG of 05-APR-2023 12:59, No significant change was found Referred By: Generic ED Physician Electronically Signed By:JOAN CERNA
[2024-04-03 11:34] VITALS: BP 142/92; PULSE 86; RESP 18; TEMP 36.6; O2SAT 100; BMI 26.0
--- NOTE | 2024-04-03 11:48 | ED.CHESTPAIN ---
HPI - Chest Pain General Chief Complaint: Chest Pain Stated Complaint: CP Time Seen by Provider: 04/03/24 12:57 Source: patient and old records reviewed Mode of arrival: ambulatory Limitations: no limitations History of Present Illness ED Provider: AIMEE HPI narrative: 34 yo female with PMH of DUB, asthma here with c/o chest wall pain after URI last week. Her pain started Monday it comes and goes while at rest not brought on by exertion she will feel tight pain across the chest now initially just left and hurts to take a deep breath and open the chest. She notes she had a flu like illness. She is on amoxicillin for infected tooth but no neck swelling or fevers. No OCPs, travel, hx of heart disease or VTE. MD complaint: chest pain Onset (ago): day(s) (Monday) Timing of current episode: episodic Prior episodes: No Onset: during rest and during exertion Pain location: left chest and right chest Pain radiation: none Severity: moderate Quality: sharp Relieving factors: nothing Exacerbating factors: inspiration, palpation and movement Context: recent illness Associated symptoms: dyspnea Treatment prior to arrival: none Related Data Home Medications ?Medication ?Instructions ?Recorded ?Confirmed albuterol sulfate 90 mcg/actuation 0 mcg inhalation 04/03/21 06/15/23 aerosol inhaler epinephrine 0.3 mg/0.3 mL 0.3 mg IM ONCE PRN 04/03/21 06/15/23 injection, auto-injector fluticasone propionate 50 1 spray intranasal DAILY 04/03/21 06/15/23 mcg/actuation nasal spray,suspension folic acid 1 mg tablet 1 mg PO DAILY 12/24/21 06/15/23 magnesium oxide 500 mg PO BID PRN constipation 12/24/21 06/15/23 mecobalamin (vitamin B12) 5,000 mcg PO 12/24/21 06/15/23 mcg disintegrating tablet pseudoephedrine HCl 120 mg 120 mg PO Q12H 12/24/21 06/15/23 tablet,extended release (Sinus 12 Hour) turmeric root extract 500 mg 500 mg PO DAILY 12/24/21 06/15/23 capsule Previous Rx's ?Medication ?Instructions ?Recorded albuterol sulfate 90 mcg/actuation 1 inh inhalation Q4-6H PRN 04/03/21 aerosol inhaler (ProAir HFA) shortness of breath or wheezing #6.7 grams acetaminophen 500 mg capsule 500 mg PO Q6H PRN fever #30 caps 06/15/23 azithromycin 500 mg tablet 500 mg PO DAILY 5 days #5 tabs 06/15/23 amoxicillin 500 mg-potassium 1 tab PO BID #14 tabs 06/22/23 clavulanate 125 mg tablet (Augmentin) oxycodone 5 mg tablet 5 mg PO BID PRN pain #10 tabs 06/22/23 oxycodone 5 mg tablet 5 mg PO BID PRN pain #7 tabs 06/22/23 cyclobenzaprine 10 mg tablet 10 mg PO TID PRN muscle spasm #14 04/03/24 tabs Allergies Allergy/AdvReac Type Severity Reaction Status Date / Time morphine Allergy Mild itchy Verified 04/03/24 11:39 chest and throat diphenhydramine Allergy Unknown PALP Verified 04/03/24 11:39 [From BENADRYL] ibuprofen [From MOTRIN] Allergy Unknown PALP Verified 04/03/24 11:39 Review of Systems Review of Systems: Constitutional : No Weight loss, No Fever, No Chills ENT/Mouth : No sore throat, No Rhinorrhea Eyes: No Eye Pain, No Swelling Cardiovascular : pos Chest Pain, pos SOB, no Dyspnea on Exertion, No Orthopnea, No Edema, No Palpitations Respiratory : No Cough, No Sputum Gastrointestinal : no Nausea, No Vomiting, No Diarrhea, No abdominal Pain, No Hematochezia, No Melena Genitourinary : No Dysuria, No Urinary Frequency Musculoskeletal : No joint pain, No Myalgias, No Joint Swelling Skin : No Skin Lesions, No rash Neuro : No Weakness, No Numbness, No Dizziness, No Headache All other systems reviewed and are negative [facility] Past Medical History Attestation statement: The following information was validated with the patient. Source: old records reviewed Medical History (Updated 04/03/24 @ 13:49 by Maude Gerardo DO) Asthma Dysfunctional uterine bleeding Social History Social History Alcohol intake: never Patient Tobacco Use Status: Never used Tobacco Smoked in Last 30 Days: No Use of substances other than those prescribed or required for medical reasons: No Advance Directives: No Patient : No Physical Exam Vital Signs: Vital Signs: Last Vital Signs Temp 98.4 F 04/03/24 14:06 Pulse 80 04/03/24 14:06 Resp 16 04/03/24 14:06 BP 105/72 04/03/24 14:06 Pulse Ox 99 04/03/24 14:06 O2 Del Method Room Air 04/03/24 14:06 BMI result Body Mass Index 26.0 Appearance: Alert. Oriented X3. No acute distress. Eyes: Pupils equal, round and reactive to light. ENT: Pharynx normal. Neck: Normal inspection. Neck supple. CVS: Normal heart rate and rhythm. Pulses normal. Chest: ttp along anterior chest wall reproduces pain Respiratory: No respiratory distress. Breath sounds normal. Abdomen: Soft and nontender. Skin: Skin warm and dry. Normal skin color. Extremities: No lower extremity edema. Neuro: Oriented X 3. No motor deficit. No sensory deficit. Course Course Course Narrative: RME: 34-year-old female healthy presents to ED for chest pain for 1 week on inspiration with dizziness described as lightheadedness and fatigue. Patient denies any recent long travel, recent surgery, any control use. Patient still on amoxicillin for cavity. Negative for facial or neck swelling. Labs EKG chest x-ray ordered. Medical Decision Making Medical Decision Making [facility] Narrative: 34 yo female with PMH of DUB, asthma here with c/o anterior chest wall pain that is reproduceable at this time just had virus suspect costochondritis - she has no risk factors for ACS or VTE - will obtain basic labs, EKG, troponin, CXR and start on tylenol and flexeril. Low prob VTE she is PERC negative, distal pulses intact doubt dissection. No risk factors for ACS Differential Diagnosis Differential Diagnoses: The differential diagnosis associated with the presentation includes atypical chest pain, post viral, costochondritis Admission/Observation Consideration of admission/observation: Escalation of care including admission/observation considered negative workup stable for DC Lab Data [facility] Lab Attestation statement: I reviewed the patient's lab results. 04/03/24 11:56 04/03/24 11:56 Labs: Lab Results 04/03/24 Range/Units 11:56 WBC 6.3 (4.8-10.8) X10*3/uL RBC 4.53 (4.20-5.50) X10*6/uL Hgb 12.6 (12.0-16.0) g/dl Hct 38.7 (37.0-47.0) % MCV 85.4 (80.0-98.0) fL MCH 27.8 (27.0-33.0) pg MCHC 32.6 (31.0-35.0) g/dl RDW 13.5 (11.0-16.0) % Plt Count 409 H (160-400) X10*3/uL MPV 10.0 (9.4-12.3) fL Immature Gran % (Auto) 0.3 (0.0-0.4) % Neut % (Auto) 49.5 (45-73) % Lymph % (Auto) 39.6 (20-40) % [place] % (Auto) 7.8 (2-11) % Eos % (Auto) 2.2 (0-4) % Baso % (Auto) 0.6 (0-2) % Lymph # (Auto) 2.5 (1.2-4.9) X10*3/uL [place] # (Auto) 0.5 (0.1-1.2) X10*3/uL Eos # (Auto) 0.1 (0.0-0.4) X10*3/uL Baso # (Auto) 0.0 (0.0-0.2) X10*3/uL Abs Immat Gran (auto) 0.02 (0.00-0.03) X10*3/uL Absolute Neuts (auto) 3.1 (2.0-8.3) x10*3/uL Absolute Nucleated RBC 0.000 (0.0-0.012) X10*3/uL Nucleated RBC % (auto) 0.0 (0.0-0.2) /100WBC PT 10.9 (10.9-12.4) SEC INR 0.9 (0.9-1.1) APTT 31.1 (26.0-36.8) SEC Sodium 140 (135-145) mmol/L Potassium 4.2 (3.3-5.1) mmol/L Chloride 105 (96-108) mmol/L Carbon Dioxide 25 (22-29) mmol/L Anion Gap 14 (12-20) BUN 13 (9-16) mg/dL Creatinine 0.68 (0.5-1.4) mg/dL Estim Creat Clear Calc 102.7 Estimated GFR > 60 Random Glucose 97 (60-115) mg/dL Calcium 9.8 (8.4-10.2) mg/dL Total Bilirubin 0.3 (0.0-1.0) mg/dL AST 23 (5-31) U/L ALT 24 (0-31) U/L Alkaline Phosphatase 64 (39-117) U/L Troponin I High Sens < 2.7 (<3.5-17.0) ng/L B-Natriuretic Peptide < 10 (<100) pg/mL Total Protein 8.5 H (6.5-8.0) g/dL Albumin 4.7 (3.5-5.0) g/dL Influenza Type A (PCR) NEGATIVE (Negative) Influenza Type B (PCR) NEGATIVE (Negative) RSV RNA Qual (PCR) NEGATIVE (Negative) SARS-CoV-2 RNA (RT-PCR) NEGATIVE (Negative) Independent Interpretation I performed an independent interpretation of an: EKG and Plain X-Ray (normal ) Interpretation: Rate: 84 Rhythm: NSR [place]: normal Normal P waves. Normal KIARA. Normal QRS complex. ST T wave : no SANTIAGO, inverted t waves III qTC: 427 prior studies: no acute ischemia The study has been interpreted contemporaneously by me. . Radiology Impression Discussion of test interpretation with radiology: I have reviewed the radiologist's reading. External Record Review External record reviewed: Office record Prescription Management I considered prescription management with: Other Discharge Plan Discharge Clinical Impression: Acute costochondritis Patient Disposition: Home, Self-Care Instructions: Costochondritis (ED) Additional Instructions: labs are normal today no anemia tests for the heart normal negative for flu covid and rsv chest xray normal suspect this is post infectious inflammation the chest wall take tylenol as needed for pain and muscle relaxers return for any worsening symptoms or concerns take it easy for the next few days- limit exercise and lifting Prescriptions: New cyclobenzaprine 10 mg tablet 10 mg PO TID PRN (Reason: muscle spasm) Qty: 14 0RF No Action amoxicillin-pot clavulanate [Augmentin] 500-125 mg tablet 1 tab PO BID Qty: 14 0RF oxycodone 5 mg tablet 5 mg PO BID PRN (Reason: pain) Qty: 10 0RF Rx Instructions: Partial Fill upon patient request. oxycodone 5 mg tablet 5 mg PO BID PRN (Reason: pain) Qty: 7 0RF Rx Instructions: Partial Fill upon patient request. acetaminophen 500 mg capsule 500 mg PO Q6H PRN (Reason: fever) Qty: 30 0RF Rx Instructions: TAKE 2 TABS EVERY 6-8 HOURS FOR FEVER AND PAIN azithromycin 500 mg tablet 500 mg PO DAILY 5 Days Qty: 5 0RF albuterol sulfate 90 mcg/actuation HFA aerosol inhaler 0 mcg inhalation fluticasone propionate 50 mcg/actuation spray,suspension 1 spray intranasal DAILY epinephrine 0.3 mg/0.3 mL auto-injector 0.3 mg IM ONCE PRN albuterol sulfate [ProAir HFA] 90 mcg/actuation HFA aerosol inhaler 1 inh inhalation Q4-6H PRN (Reason: shortness of breath or wheezing) Qty: 6.7 0RF magnesium oxide 250 mg magnesium tablet 500 mg PO BID PRN (Reason: constipation) mecobalamin (vitamin B12) 5,000 mcg tablet,disintegrating PO folic acid 1 mg tablet 1 mg PO DAILY turmeric root extract 500 mg capsule 500 mg PO DAILY pseudoephedrine HCl [Sinus 12 Hour] 120 mg tablet extended release 120 mg PO Q12H Stand Alone Forms: Work/School Release Interventions: ED Discharge Assessment Last Done: 04/03/24 14:06 Discharge Date/Time: 04/03/24 14:12 Print Language: Pakistani
[2024-04-03 12:12] LABS: MANUAL DIFF FLAG NO
[2024-04-03 12:14] LABS: Basophils Percent Auto 0.6 % (0-2); Eosinophils Absolute Auto 0.1 X10*3/uL (0.0-0.4); Eosinophils Percent Auto 2.2 % (0-4); Hematocrit 38.7 % (37.0-47.0); Hemoglobin 12.6 g/dl (12.0-16.0); Imm Gran Abs Auto 0.02 X10*3/uL (0.00-0.03); Imm Gran Pct Auto 0.3 % (0.0-0.4); Lymphocytes Absolute Auto 2.5 X10*3/uL (1.2-4.9); Lymphocytes Percent Auto 39.6 % (20-40); Mean Corpuscular HGB Conc 32.6 g/dl (31.0-35.0); Mean Corpuscular Hemoglobin 27.8 pg (27.0-33.0); Mean Corpuscular Volume 85.4 fL (80.0-98.0); Monocytes Absolute Auto 0.5 X10*3/uL (0.1-1.2); Monocytes Percent Auto 7.8 % (2-11); Neutrophils Absolute Auto 3.1 x10*3/uL (2.0-8.3); Neutrophils Percent Auto 49.5 % (45-73); Platelet Count 409 X10*3/uL (160-400); Red Blood Count 4.53 X10*6/uL (4.20-5.50); Red Cell Distribution Width 13.5 % (11.0-16.0); White Blood Count 6.3 X10*3/uL (4.8-10.8)
[2024-04-03 12:22] LABS: INTERNATIONAL NORM RATIO 0.9 (0.9-1.1); Prothrombin Time 10.9 SEC (10.9-12.4)
[2024-04-03 12:25] LABS: Partial Thromboplastin Time 31.1 SEC (26.0-36.8)
[2024-04-03 12:30] LABS: Alanine Aminotransferase 24 U/L (0-31); Albumin Level 4.7 g/dL (3.5-5.0); Alkaline Phosphatase 64 U/L (39-117); Anion Gap 14 (12-20); Aspartate Amino Transferase 23 U/L (5-31); Bilirubin Total 0.3 mg/dL (0.0-1.0); Blood Urea Nitrogen 13 mg/dL (9-16); Calcium 9.8 mg/dL (8.4-10.2); Carbon Dioxide 25 mmol/L (22-29); Chloride 105 mmol/L (96-108); Creatinine Clr Calc Pharmacy 102.7; Estimated Glomerular Filt Rate > 60; Glucose Random 97 mg/dL (60-115); Potassium 4.2 mmol/L (3.3-5.1); Sodium 140 mmol/L (135-145); Total Protein 8.5 g/dL (6.5-8.0)
[2024-04-03 12:33] LABS: B Type Natriuretic Peptide < 10 pg/mL (<100)
[2024-04-03 12:38] LABS: Troponin-I High Sensitivity < 2.7 ng/L (<3.5-17.0)
[2024-04-03 12:58] LABS: Influenza A PCR NEGATIVE (Negative); Influenza B PCR NEGATIVE (Negative); Resp Syncy Virus RNA Qual PCR NEGATIVE (Negative); SARS COV2 PCR INHOUSE NEGATIVE (Negative)
[2024-04-03 14:06] VITALS: BP 105/72; PULSE 80; RESP 16; TEMP 36.9; O2SAT 99
== END 2024-04-03 14:12 | disposition home or self-care (01) ==
PROVIDERS: Physician Assistant; Emergency Provider Emergency Medicine
DX: M94.0 Chondrocostal junction syndrome [Tietze] (principal); R07.9 Chest pain, unspecified; J45.909 Unspecified asthma, uncomplicated; R42 Dizziness and giddiness; R53.83 Other fatigue; Z79.899 Other long term (current) drug therapy; Z03.818 Encounter for observation for suspected exposure to other biological agents ruled out
CPT/HCPCS: 0241U; 71045; 80053; 83880; 84484; 85025; 85610; 85730; 93005; 99283; 99285

== ENCOUNTER → 2024-04-03 11:30 | Outpatient (BNV) | payer BC, SELFPAY | PROVIDERS: Emergency Provider Emergency Medicine; Visit Provider Internal Medicine | DX: R07.9 Chest pain, unspecified (principal); I49.8 Other specified cardiac arrhythmias | CPT/HCPCS: 93010 ==

== ENCOUNTER 2024-06-14 09:17 | Emergency (ER) | payer BC, SELFPAY ==
--- NOTE | ~2024-06-14 | XR_ITS ---
EXAMINATION: XR CHEST CLINICAL INFORMATION: cough COMPARISON: Chest x-ray 04/03/2024 TECHNIQUE: Frontal view of the chest was obtained. FINDINGS: No significant abnormality is noted involving the heart, lungs, mediastinum, bony thorax or soft tissues. XR/XR chest 1V IMPRESSION: Unremarkable chest examination. Electronically signed by: Garrett Ferreira MD 06/14/2024 11:35 AM [facility]
--- NOTE | 2024-06-14 09:19 | ECG_ITS ---
Test Reason : sob Blood Pressure : */* mmHG Vent. Rate : 87 BPM Atrial Rate : 87 BPM P-R Int : 120 ms QRS Dur : 86 ms QT Int : 364 ms P-R-T Axes : 65 69 11 degrees QTcB Int : 438 ms Normal sinus rhythm with sinus arrhythmia Normal ECG When compared with ECG of 03-Apr-2024 11:31, No significant change was found Referred By: Generic ED Physician Electronically Signed By: JOAN CERNA
[2024-06-14 09:36] VITALS: BP 115/71; PULSE 84; RESP 16; TEMP 36.6; O2SAT 98; BMI 26.2
[2024-06-14 10:10] LABS: IDNOW Serial# 08D9AD1C; Strep A Nucleic Acid Negative (Negative)
[2024-06-14 10:41] LABS: Influenza A PCR NEGATIVE (Negative); Influenza B PCR NEGATIVE (Negative); Resp Syncy Virus RNA Qual PCR NEGATIVE (Negative); SARS COV2 PCR INHOUSE NEGATIVE (Negative)
[2024-06-14 11:05] LABS: MANUAL DIFF FLAG NO
[2024-06-14 11:13] LABS: Basophils Percent Auto 0.7 % (0-2); Eosinophils Absolute Auto 0.4 X10*3/uL (0.0-0.4); Eosinophils Percent Auto 7.1 % (0-4); Hematocrit 33.8 % (37.0-47.0); Hemoglobin 11.1 g/dl (12.0-16.0); Imm Gran Abs Auto 0.01 X10*3/uL (0.00-0.03); Imm Gran Pct Auto 0.2 % (0.0-0.4); Lymphocytes Percent Auto 37.4 % (20-40); Mean Corpuscular HGB Conc 32.8 g/dl (31.0-35.0); Mean Corpuscular Hemoglobin 27.7 pg (27.0-33.0); Mean Corpuscular Volume 84.3 fL (80.0-98.0); Monocytes Absolute Auto 0.5 X10*3/uL (0.1-1.2); Neutrophils Absolute Auto 2.5 x10*3/uL (2.0-8.3); Neutrophils Percent Auto 45.6 % (45-73); Platelet Count 350 X10*3/uL (160-400); Red Blood Count 4.01 X10*6/uL (4.20-5.50); Red Cell Distribution Width 13.5 % (11.0-16.0); White Blood Count 5.5 X10*3/uL (4.8-10.8)
[2024-06-14 11:36] LABS: Alanine Aminotransferase 20 U/L (0-31); Albumin Level 3.9 g/dL (3.5-5.0); Anion Gap 10 (12-20); Aspartate Amino Transferase 20 U/L (5-31); Bilirubin Total 0.2 mg/dL (0.0-1.0); Blood Urea Nitrogen 13 mg/dL (9-16); Calcium 8.9 mg/dL (8.4-10.2); Carbon Dioxide 25 mmol/L (22-29); Chloride 109 mmol/L (96-108); Creatinine Clr Calc Pharmacy 104.6; Estimated Glomerular Filt Rate > 60; Glucose Random 117 mg/dL (60-115); Magnesium 1.9 mg/dL (1.6-2.6); Potassium 4.3 mmol/L (3.3-5.1); Sodium 140 mmol/L (135-145); Total Protein 7.2 g/dL (6.5-8.0)
[2024-06-14 11:38] LABS: Alkaline Phosphatase 59 U/L (39-117); Troponin-I High Sensitivity < 2.7 ng/L (<3.5-17.0)
--- NOTE | 2024-06-14 11:51 | ED_ITS ---
HPI - URI/Sore Throat General Chief Complaint: Upper Respiratory Symptoms Stated Complaint: CP, sob, sinus problems Time Seen by Provider: 06/14/24 10:00 Source: patient Mode of arrival: ambulatory Limitations: no limitations History of Present Illness ED Provider: YOBANY Evans HPI Narrative: This is a 34-year-old female past medical history of asthma, seasonal allergies, anemia presenting to the emergency department with sinus pressure fatigue, malaise, congestion, dry cough ongoing since April, she reports in early May she went to an urgent care she got amoxicillin for 7 days for suspected sinus infection this did not seem to make it better. Since then she continues to have the same symptoms. She tells me she frequently gets sinus infections however this 1 does not seem to be going away. She has not yet tried steroids for this. She also reports dry cough and some substernal chest discomfort with coughing. She denies headache, vision changes, dizziness, fevers, chills, chest pain, shortness of breath, weakness, sick contacts, nausea, vomiting, diarrhea and abdominal pain. Related Data Home Medications ?Medication ?Instructions ?Recorded ?Confirmed albuterol sulfate 90 mcg/actuation 0 mcg inhalation 04/03/21 06/15/23 aerosol inhaler epinephrine 0.3 mg/0.3 mL 0.3 mg IM ONCE PRN 04/03/21 06/15/23 injection, auto-injector fluticasone propionate 50 1 spray intranasal DAILY 04/03/21 06/15/23 mcg/actuation nasal spray,suspension folic acid 1 mg tablet 1 mg PO DAILY 12/24/21 06/15/23 magnesium oxide 500 mg PO BID PRN constipation 12/24/21 06/15/23 mecobalamin (vitamin B12) 5,000 mcg PO 12/24/21 06/15/23 mcg disintegrating tablet pseudoephedrine HCl 120 mg 120 mg PO Q12H 12/24/21 06/15/23 tablet,extended release (Sinus 12 Hour) turmeric root extract 500 mg 500 mg PO DAILY 12/24/21 06/15/23 capsule Previous Rx's ?Medication ?Instructions ?Recorded albuterol sulfate 90 mcg/actuation 1 inh inhalation Q4-6H PRN 04/03/21 aerosol inhaler (ProAir HFA) shortness of breath or wheezing #6.7 grams acetaminophen 500 mg capsule 500 mg PO Q6H PRN fever #30 caps 06/15/23 azithromycin 500 mg tablet 500 mg PO DAILY 5 days #5 tabs 06/15/23 amoxicillin 500 mg-potassium 1 tab PO BID #14 tabs 06/22/23 clavulanate 125 mg tablet (Augmentin) oxycodone 5 mg tablet 5 mg PO BID PRN pain #10 tabs 06/22/23 oxycodone 5 mg tablet 5 mg PO BID PRN pain #7 tabs 06/22/23 cyclobenzaprine 10 mg tablet 10 mg PO TID PRN muscle spasm #14 04/03/24 tabs amoxicillin 875 mg-potassium 1 tab PO BID 10 days #20 tabs 06/14/24 clavulanate 125 mg tablet prednisone 20 mg tablet 40 mg (2 x 20 mg) PO DAILY 5 days 06/14/24 #10 tabs Allergies Allergy/AdvReac Type Severity Reaction Status Date / Time morphine Allergy Mild itchy Verified 06/14/24 09:50 chest and throat diphenhydramine Allergy Unknown PALP Verified 06/14/24 09:50 [From BENADRYL] ibuprofen [From MOTRIN] Allergy Unknown PALP Verified 06/14/24 09:50 Review of Systems 2 Review of Systems: Yes all other systems are reviewed and are negative PMFSH Past Medical History Attestation statement: The following information was validated with the patient. Source: old records reviewed and nursing notes reviewed Medical History Asthma Dysfunctional uterine bleeding Social History Social History Alcohol intake: never Patient Tobacco Use Status: Never used Tobacco Physical Exam 2 Vital Signs: Vital Signs: Last Vital Signs Temp 97.9 F 06/14/24 09:36 Pulse 84 06/14/24 09:36 Resp 16 06/14/24 09:36 BP 115/71 06/14/24 09:36 Pulse Ox 98 06/14/24 09:36 O2 Del Method Room Air 06/14/24 09:36 BMI result Body Mass Index 26.2 vss Appearance: Alert.? Oriented X3.? No acute distress.? Head: Normocephalic, atraumatic, no step-offs or deformities Eyes: Pupils equal, round and reactive to light.? Neck: Normal inspection.? Neck supple.? CVS: Normal heart rate and rhythm.? Pulses normal.? Respiratory: No respiratory distress.? Breath sounds normal.? Abdomen: Soft and nontender.? Skin: Skin warm and dry.? Normal skin color.? Normal skin turgor.? Extremities: No lower extremity edema.? No calf ttp. 5/5 strength to bilateral upper and lower extremities Neuro: Oriented X 3.? No motor deficit.? No sensory deficit. CN 2-12 intact Course Reevaluation(s) Reevaluation #1: Chest x-ray unremarkable. CBC with a normocytic anemia appears to be around patient's baseline. Chemistry with no acute findings needing intervention. Troponin negative EKG nonischemic patient's heart score no recommendation of repeat troponin. History and physical exam not consistent with PE. Flu, COVID, RSV and strep test negative. Will discharge her home on Augmentin 875/125 x10 days as well as prednisone 40 mg p.o. daily x5 days. Advised to return with new or worsening symptoms Educated patient on diagnosis and treatment plan, answered all question, patient verbalizes understanding. At this time patient will be discharged home, advised to return with new or worsening symptoms. Educated on worrisome signs and symptoms and when to return. At this time I feel comfortable discharge home. Time: 11:56 Medical Decision Making Medical Decision Making [facility] Narrative: 34-year-old female presents with sinus like symptoms ongoing since April not improving despite a round of antibiotics and Kwame for 7 days. Physical exam benign. She does not report discomfort to facial sinuses with palpation and forward bending however. History and physical exam concerning for sinusitis versus bronchitis. Unlikely PE, pneumonia, ACS, dissection, acute respiratory distress, meningitis, encephalitis. Plan will obtain labs, EKG, viral testing and x-ray Differential Diagnosis Differential Diagnoses: The differential diagnosis associated with the presentation includes (History and physical exam concerning for sinusitis versus bronchitis. Unlikely PE, pneumonia, ACS, dissection, acute respiratory distress, meningitis, encephalitis.) Admission/Observation Consideration of admission/observation: Escalation of care including admission/observation considered (Unlikely) Lab Data [facility] Lab Attestation statement: I reviewed the patient's lab results. 06/14/24 11:01 06/14/24 11:01 Labs: Lab Results 01/10/25 01/10/25 Range/Units 09:56 11:01 WBC 5.5 (4.8-10.8) X10*3/uL RBC 4.01 L (4.20-5.50) X10*6/uL Hgb 11.1 L (12.0-16.0) g/dl Hct 33.8 L (37.0-47.0) % MCV 84.3 (80.0-98.0) fL MCH 27.7 (27.0-33.0) pg MCHC 32.8 (31.0-35.0) g/dl RDW 13.5 (11.0-16.0) % Plt Count 350 (160-400) X10*3/uL MPV 10.0 (9.4-12.3) fL Immature Gran % (Auto) 0.2 (0.0-0.4) % Neut % (Auto) 45.6 (45-73) % Lymph % (Auto) 37.4 (20-40) % [place] % (Auto) 9.0 (2-11) % Eos % (Auto) 7.1 H (0-4) % Baso % (Auto) 0.7 (0-2) % Lymph # (Auto) 2.0 (1.2-4.9) X10*3/uL [place] # (Auto) 0.5 (0.1-1.2) X10*3/uL Eos # (Auto) 0.4 (0.0-0.4) X10*3/uL Baso # (Auto) 0.0 (0.0-0.2) X10*3/uL Abs Immat Gran (auto) 0.01 (0.00-0.03) X10*3/uL Absolute Neuts (auto) 2.5 (2.0-8.3) x10*3/uL Absolute Nucleated RBC 0.000 (0.0-0.012) X10*3/uL Nucleated RBC % (auto) 0.0 (0.0-0.2) /100WBC Sodium 140 (135-145) mmol/L Potassium 4.3 (3.3-5.1) mmol/L Chloride 109 H (96-108) mmol/L Carbon Dioxide 25 (22-29) mmol/L Anion Gap 10 L (12-20) BUN 13 (9-16) mg/dL Creatinine 0.67 (0.5-1.4) mg/dL Estim Creat Clear Calc 104.6 Estimated GFR > 60 Random Glucose 117 H (60-115) mg/dL Calcium 8.9 D (8.4-10.2) mg/dL Magnesium 1.9 (1.6-2.6) mg/dL Total Bilirubin 0.2 (0.0-1.0) mg/dL AST 20 (5-31) U/L ALT 20 (0-31) U/L Alkaline Phosphatase 59 (39-117) U/L Troponin I High Sens < 2.7 (<3.5-17.0) ng/L Total Protein 7.2 (6.5-8.0) g/dL Albumin 3.9 (3.5-5.0) g/dL Influenza Type A (PCR) NEGATIVE (Negative) Influenza Type B (PCR) NEGATIVE (Negative) RSV RNA Qual (PCR) NEGATIVE (Negative) SARS-CoV-2 RNA (RT-PCR) NEGATIVE (Negative) S. pyogenes GrpA IVAN Negative (Negative) Independent Interpretation I performed an independent interpretation of an: EKG (Vent. Rate : 87 BPM Atrial Rate : 87 BPM P-R Int : 120 ms QRS Dur : 86 ms QT Int : 364 ms P-R-T Axes : 65 69 11 degrees QTcB Int : 438 ms Normal sinus rhythm with sinus arrhythmia Normal ECG When compared with ECG of 03-Apr-2024 11:31, No significant change was fo) and Plain X-Ray ( XR/XR chest 1V IMPRESSION: Unremarkable chest examination.) Radiology Impression Discussion of test interpretation with radiology: I have reviewed the radiologist's reading. Independent Historian Clinical information obtained from an independent historian. History obtained from or confirmed by: Spouse External Record Review External record reviewed: Office record, Outpatient record, Prior outpatient labs and Prior outpatient radiology Prescription Management I considered prescription management with: Antibiotic and Other (Prednisone) Chronic Conditions Patient?s care impacted by: Other (See HPI) Discharge Plan Discharge Clinical Impression: Sinusitis, Upper respiratory infection Patient Disposition: Home, Self-Care Instructions: Sinusitis (ED), Upper Respiratory Infection (ED) Additional Instructions: Take your medications as prescribed. If you were prescribed antibiotics today, it is important that you take your medication to their entirety, do not skip any doses, do not finish them early. Follow-up with your primary care provider this week. Return to the emergency department with new or worsening symptoms. Such as fevers, chills, chest pain, shortness of breath, nausea, vomiting, dizziness, headache, vision changes, lethargy In case of emergency call 911 Prescriptions: New amoxicillin-pot clavulanate 875-125 mg tablet 1 tab PO BID 10 Days Qty: 20 0RF prednisone 20 mg tablet 40 mg PO DAILY 5 Days Qty: 10 0RF No Action amoxicillin-pot clavulanate [Augmentin] 500-125 mg tablet 1 tab PO BID Qty: 14 0RF oxycodone 5 mg tablet 5 mg PO BID PRN (Reason: pain) Qty: 10 0RF Rx Instructions: Partial Fill upon patient request. oxycodone 5 mg tablet 5 mg PO BID PRN (Reason: pain) Qty: 7 0RF Rx Instructions: Partial Fill upon patient request. cyclobenzaprine 10 mg tablet 10 mg PO TID PRN (Reason: muscle spasm) Qty: 14 0RF acetaminophen 500 mg capsule 500 mg PO Q6H PRN (Reason: fever) Qty: 30 0RF Rx Instructions: TAKE 2 TABS EVERY 6-8 HOURS FOR FEVER AND PAIN azithromycin 500 mg tablet 500 mg PO DAILY 5 Days Qty: 5 0RF albuterol sulfate 90 mcg/actuation HFA aerosol inhaler 0 mcg inhalation fluticasone propionate 50 mcg/actuation spray,suspension 1 spray intranasal DAILY epinephrine 0.3 mg/0.3 mL auto-injector 0.3 mg IM ONCE PRN albuterol sulfate [ProAir HFA] 90 mcg/actuation HFA aerosol inhaler 1 inh inhalation Q4-6H PRN (Reason: shortness of breath or wheezing) Qty: 6.7 0RF magnesium oxide 250 mg magnesium tablet 500 mg PO BID PRN (Reason: constipation) mecobalamin (vitamin B12) 5,000 mcg tablet,disintegrating PO folic acid 1 mg tablet 1 mg PO DAILY turmeric root extract 500 mg capsule 500 mg PO DAILY pseudoephedrine HCl [Sinus 12 Hour] 120 mg tablet extended release 120 mg PO Q12H Referrals: Kameron Wright MD [Primary Care Provider] - 2 days Stand Alone Forms: Work/School Release Discharge Date/Time: 06/14/24 12:35 Print Language: Albanian
[2024-06-14 13:41] VITALS: BP 115/71; PULSE 84; RESP 16; TEMP 36.6; O2SAT 98
== END 2024-06-14 12:36 | disposition home or self-care (01) ==
PROVIDERS: Physician Assistant; Emergency Provider Emergency Medicine; PCP Pediatrics
DX: J06.9 Acute upper respiratory infection, unspecified (principal); R07.89 Other chest pain; R06.02 Shortness of breath; R05.9 Cough, unspecified; J32.9 Chronic sinusitis, unspecified; Z03.818 Encounter for observation for suspected exposure to other biological agents ruled out; Z79.899 Other long term (current) drug therapy
CPT/HCPCS: 0241U; 36415; 71045; 80053; 83735; 84484; 85025; 87651; 93005; 99283

== ENCOUNTER → 2024-06-14 09:19 | Outpatient (BNV) | payer BC, SELFPAY | PROVIDERS: Emergency Provider Emergency Medicine; PCP Pediatrics; Visit Provider Internal Medicine | DX: R06.02 Shortness of breath (principal) | CPT/HCPCS: 93010 ==

== ENCOUNTER → 2024-06-14 10:49 | Outpatient (BNV) | payer BC, SELFPAY | PROVIDERS: Emergency Provider Emergency Medicine; PCP Pediatrics; Visit Provider Radiology Diagnostic Radiology | DX: R05.9 Cough, unspecified (principal) | CPT/HCPCS: 71045 ==